=== PATIENT | male | born 1970 | race Hispanic/Latino ===

== ENCOUNTER → 2023-06-11 | Outpatient (CLI) | payer MEDICARE | END | disposition home or self-care (01) | LOC: RAH 13:25 | PROVIDERS: ATTEND Family Medicine | DX: M47.24 Other spondylosis with radiculopathy, thoracic region (principal); M25.78 Osteophyte, vertebrae; M48.04 Spinal stenosis, thoracic region | CPT/HCPCS: 72128 ==